=== PATIENT | female | born 1970 | race Caucasian/White ===

== ENCOUNTER 2017-01-24 23:58 | Emergency (ER) | payer BC ==
[~2017-01-24] VITALS: Ht 162.6 cm; Wt 92.8 kg
[~2017-01-24 23:58] MED LIST: CETI-273 PO; CIPR-212 PO; HYDR-4246 PO; LEVO150T11 PO; METF10002 PO; METR500T PO
--- OUTSIDE RECORDS SUMMARY | 2017-01-25 00:03 | XMS REPORT | Continuity of Care Document ---
Author Author [facility] Organization [facility] Address Unknown Phone Unavailable Support Name Relationship Address Phone ANDRES COTA MD Caregiver [address] [place] [address] Unavailable TAMIE ARROYO MD Caregiver [address] [place] [address] Unavailable CHANG MILLARD Next Of Kin Unknown [phone] Insurance Providers Guarantor Domenica Sampson Address [address] [place] [address] c Email [email or web address] [facility] Policy Number [id number] Subscriber's Name Domenica Sampson Relationship 18 Self Group Number [id number] Chief Complaint and Reason for Visit Chief Complaint Abdominal Pain Reason for Visit Diverticulitis Problems Active Problems Medical Problem Onset Date Status Acute appendicitis Unknown Acute Past Problems Medical Problem Onset Date Diverticulitis Unknown Medications Current Home Medications Medication Dose Units Route Directions Days Qty Instructions Start Date Cetirizine Hcl (Zyrtec) 10 Mg Tab.rapdis 1 Tab Oral As Needed RAPID DISSOLVE TABLET. 07/14/15 Ciprofloxacin Hcl (Cipro) 500 Mg Tablet 500 Mg Oral Every 12 Hours 20 Tablet 10/17/16 Hydrocodone/Acetaminophen (York 5-325 Tablet) 5-325 Tablet 1 Tab Oral Four Times Daily as needed for Pain 30 10/17/16 Levothyroxine Sodium 150 Mcg Tablet 150 Mcg Oral Before Breakfast Once daily before breakfast. 08/08/15 Metformin Hcl 1,000 Mg Tablet 1 Tab Oral Twice Daily With Meals Take one tablet, by mouth, twice daily with meals 10/17/16 Metronidazole (Flagyl) 500 Mg Tablet 500 Mg Oral Q8h @ 0100/0900/1700 30 Tablet Take 1 tablet, by mouth, every 8 hours. 10/17/16 Past Home Medications Medication Directions Ordered Status Levothyroxine Sodium 137 Mcg Tablet, 1 Tab Oral Before Breakfast 07/14/15 Discontinued Social History Social History Problem Response Recorded Date/Time Onset Date Status Chewing Tobacco Status No 10/17/2016 2:49am Not Applicable Not Applicable Hx Substance Use No 10/17/2016 2:49am Not Applicable Not Applicable Hx Alcohol Use No 10/17/2016 2:49am Not Applicable Not Applicable Tobacco Usage none 04/15/2014 4:52am Not Applicable Not Applicable Query Response Start Date Stop Date Smoking Status Never smoker Hospital Discharge Instructions No hospital discharge instructions. Plan of Care Discharge Date 10/17/16 4:05am Disposition 01 DISCHARGED HOME, SELF-CARE Condition at Discharge Improved Instructions/Education Provided Diverticulitis (ED) Prescriptions See Medication Section Referrals TAMIE ARROYO MD Address: [address] [place] [address] [place] [address] Additional Instructions/Education Cipro 500 mg, one tablet twice daily for 10 days Flagyl 500 mg one tablet 3 times daily for 10 days Aleve tanb-pow-rqsulon, 2 tablets twice daily for baseline pain control York 5 mg, one tablet every 6 hours as needed for pain Follow up with Dr. Arroyo next week if not improving Care Plan and Goals Physician Care Plan Problem: sigmoid diverticulitis Goal: Follow up with primary care provider Instructions: Take medications and follow care plan as discussed/written Cipro 500 mg, one tablet twice daily for 10 days Flagyl 500 mg one tablet 3 times daily for 10 days Aleve tahn-foq-ixbjrlu, 2 tablets twice daily for baseline pain control York 5 mg, one tablet every 6 hours as needed for pain Follow up with Dr. Arroyo next week if not improving Functional Status No functional status results. Allergies, Adverse Reactions, Alerts Allergen Type Severity Reaction Status Last Updated Penicillin Allergy Severe Active 10/17/16 Immunizations Query Response on File Recorded Date/Time Hx Influenza Vaccination No 08/08/15 12:52pm Hx Pneumococcal Vaccination No 08/08/15 12:52pm Hx Influenza Vaccination No 08/08/15 12:52pm Vital Signs Acute Vital Signs Vital Response Date/Time Temperature (Fahrenheit) 98.5 deg F (96.8 - 99.1) 10/17/2016 1:02am Temperature (Calculated Celsius) 36.21919 degrees C (36.0 - 37.3) 10/17/2016 1:02am Pulse Rate (adult) 80 bpm (60 - 100) 10/17/2016 4:05am Respiratory Rate 15 breaths/min (10 - 20) 10/17/2016 4:05am O2 Sat by Pulse Oximetry 96 % (90 - 100) 10/17/2016 4:05am Blood Pressure 141/72 mm Hg 10/17/2016 4:05am Height (Feet) 5 feet 10/17/2016 1:02am Height (Inches) 4.00 inches 10/17/2016 1:02am Weight (Kilograms) 94.700 kg 10/17/2016 1:02am Body Mass Index (BMI) 35.0 10/17/2016 1:02am Results Laboratory Results Test Name Result Units Flags Reference Collection Date/Time Result Date/ Time Comments White Blood Count 12.9 T/MM3 H 4.5-11.0 10/17/2016 1:42am 10/17/2016 1: 48am Red Blood Count 4.26 M/MM3 4.00-5.20 10/17/2016 1:42am 10/17/2016 1: 48am Hemoglobin 11.6 GM/DL L 12-16 10/17/2016 1:42am 10/17/2016 1:48am Hematocrit 36.2 % 36-46 10/17/2016 1:42am 10/17/2016 1:48am Mean Corpuscular Volume 85.0 UM3 80-100 10/17/2016 1:42am 10/17/2016 1: 48am Mean Corpuscular Hemoglobin 27.2 UUG 26-34 10/17/2016 1:42am 2016 1:48am Mean Corpuscular Hemoglobin Concent 32.0 GM/DL 31-37 10/17/2016 1:42am 10/17/2016 1:48am RDW Standard Deviation 42.3 FL 36.9-50.2 10/17/2016 1:42am 10/17/2016 1 :48am Platelet Count 367 T/MM3 130-400 10/17/2016 1:42am 10/17/2016 1:48am Mean Platelet Volume 9.6 UM3 9.4-12.4 10/17/2016 1:42am 10/17/2016 1: 48am Neutrophils (%) (Auto) 71.7 % H 33-66 10/17/2016 1:42am 10/17/2016 1: 48am Lymphocytes (%) (Auto) 22.2 % L 23-45 10/17/2016 1:4210/17/2016 1: 48am Monocytes (%) (Auto) 4.6 % 0-9.0 10/17/2016 1:4210/17/2016 1:48am Eosinophils (%) (Auto) 1.2 % 0-4 10/17/2016 1:4210/17/2016 1:48am Basophils (%) (Auto) 0.2 % 0-2 10/17/2016 1:4210/17/2016 1:48am Immature Granulocyte % (Auto) 0.1 % 0.0-0.5 10/17/2016 1:422016 1:48am Absolute Neutrophils (auto) 9.3 T/MM3 H 1.8-7.7 10/17/2016 1:422016 1:48am Absolute Lymphocytes (auto) 2.9 T/MM3 1-4.8 10/17/2016 1:422016 1:48am Absolute Monocytes (auto) 0.6 T/MM3 0-0.8 10/17/2016 1:4210/17/2016 1:48am Absolute Eosinophils (auto) 0.2 T/MM3 0-0.5 10/17/2016 1:422016 1:48am Absolute Basophils (auto) 0.0 T/MM3 0-0.2 10/17/2016 1:4210/17/2016 1:48am Absolute Immature Granulocyte (auto 0.01 T/MM3 0.00-0.03 10/17/2016 1: 4210/17/2016 1:48am Icterus Index < 2 0-7 10/17/2016 1:4210/17/2016 1:58am Chemistry Specimen Hemolysis < 15 0-25 10/17/2016 1:4210/17/2016 1 :58am 0-25: Specimen Exhibited No Hemolysis. Turbidity < 20 0-20 10/17/2016 1:42am 10/17/2016 1:58am Sodium Level 140 MEQ/L 134-144 10/17/2016 1:42am 10/17/2016 1:58am Potassium Level 4.0 MEQ/L 3.6-5 10/17/2016 1:4210/17/2016 1:58am Chloride Level 106 MEQ/L 98-107 10/17/2016 1:42am 10/17/2016 1:58am Carbon Dioxide Level 24 MEQ/L 22-30 10/17/2016 1:4210/17/2016 1: 58am Anion Gap 10 MEQ/L 5-15 10/17/2016 1:4210/17/2016 1:58am Blood Urea Nitrogen 9.0 MG/DL 7-17 10/17/2016 1:4210/17/2016 1:58am Creatinine 0.8 MG/DL 0.7-1.2 10/17/2016 1:4210/17/2016 1:58am BUN/Creatinine Ratio 11 RATIO 6-26 10/17/2016 1:4210/17/2016 1:58am Glomerular Filtration Rate Calc 78 10/17/2016 1:4210/17/2016 1: 58am Glucose Level 115 MG/DL H 65-110 10/17/2016 1:4210/17/2016 1:58am Calculated Osmolality 269 MOSM/KG 261-280 10/17/2016 1:4210/17/2016 1:58am Calcium Level 9.3 MG/DL 8.4-10.2 10/17/2016 1:4210/17/2016 1:58am Total Bilirubin 0.40 MG/DL 0.20-1.30 10/17/2016 1:4210/17/2016 1: 58am Alkaline Phosphatase 68 U/L 38-126 10/17/2016 1:4210/17/2016 1:58am Total Protein 7.1 G/DL 6.3-8.2 10/17/2016 1:4210/17/2016 1:58am Albumin 3.9 G/DL 3.5-5.0 10/17/2016 1:4210/17/2016 1:58am Globulin 3.2 G/DL 2.4-3.6 10/17/2016 1:4210/17/2016 1:58am Albumin/Globulin Ratio 1.2 RATIO 1.1-2.2 10/17/2016 1:4210/17/2016 1 :58am Aspartate Amino Transf (AST/SGOT) 16 U/L 14-36 10/17/2016 1:422016 1:58am Alanine Aminotransferase (ALT/SGPT) 29 U/L 9-52 10/17/2016 1:42am 10/17 1:58am Lipase 137 U/L 23-300 10/17/2016 1:42am 10/17/2016 1:58am Urine Collection Type CLEANCATCH-MIDSTREAM 10/17/2016 1:2016 1:39am Urine Color YELLOW YELLOW 10/17/2016 1:10/17/2016 1:39am Urine Turbidity CLEAR CLEAR 10/17/2016 1:10/17/2016 1:39am Urine Specific [place] >=1.030 H 1.015-1.025 10/17/2016 1:2016 1:39am Urine pH 5.5 5.0-8.0 10/17/2016 1:10/17/2016 1:39am Urine Leukocyte Esterase NEGATIVE NEGATIVE 10/17/2016 1:2016 1:39am Urine Nitrite NEGATIVE NEGATIVE 10/17/2016 1:10/17/2016 1:39am Urine Protein 1+ A NEGATIVE 10/17/2016 1:10/17/2016 1:39am Urine Glucose (UA) NEGATIVE NEGATIVE 10/17/2016 1:10/17/2016 1: 39am Urine Ketones NEGATIVE NEGATIVE 10/17/2016 1:10/17/2016 1:39am Urine Urobilinogen 0.2 EU/DL NORMAL 10/17/2016 1:10/17/2016 1: 39am Urine Bilirubin NEGATIVE NEGATIVE 10/17/2016 1:10/17/2016 1: 39am Urine Blood 2+ A NEGATIVE 10/17/2016 1:10/17/2016 1:39am Urine WBC NONE SEEN /HPF 0-5 10/17/2016 1:10/17/2016 1:44am Urine RBC 1-3 /HPF 0-3 10/17/2016 1:10/17/2016 1:44am Urine Bacteria NONE SEEN NEGATIVE 10/17/2016 1:10/17/2016 1: 44am Urine Calcium Oxalate Crystals MODERATE 10/17/2016 1:2016 1:44am Urine Culture Indicated CULT NOT INDICATED 10/17/2016 1:19am 2016 1:44am Procedures No known history of procedures. Encounters Encounter Location Arrival/Admit Date Discharge/Depart Date Attending Provider Departed Emergency Room [facility] 10/17/16 12:46am 10/17/16 4: 05am ANDRES COTA MD Recent Diagnosis
--- OUTSIDE RECORDS SUMMARY | 2017-01-25 00:03 | XMS REPORT ---
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 56686257 Problem Non morbid obesity, unspecified obesity type E66.9 Active 371869460 Problem Fatigue R53.83 Active 28224038 Problem Premenstrual tension syndrome N94.3 Active 53502772 Problem PCOS (polycystic ovarian syndrome) E28.2 Active 99437096 Problem Atrophic vaginitis N95.2 Active 58585188 ALLERGIES Unknown Allergies SOCIAL HISTORY No smoking Hx information available PLAN OF CARE VITAL SIGNS MEDICATIONS Medication Instructions Dosage Frequency Start Date End Date Duration Status Vitamin B-12 1000 mcg sublingually once a day 1 ANDREWS 24h Mar, 100 day(s) Active RESULTS No Results PROCEDURES No Known procedures IMMUNIZATIONS No Known Immunizations
[2017-01-25 00:06] VITALS: Ht 162.6 cm; Wt 92.8 kg
[2017-01-25] MEDS ORDERED: NORMAL SALINE 1,000 ML IV ONE (00:57)
[2017-01-25] MEDS ORDERED: KETOROLAC 30mg/ml INJECTION IV ONE (01:00)
[2017-01-25] MEDS ORDERED: ONDANSETRON 4mg/2ml INJECTION IV ONE (01:00)
--- NOTE | 2017-01-25 01:14 | ERPDOC ---
Departure Disposition Decision Date: January 25, 2017 Disposition Decision Time: 02:55 Disposition: 01 DISCHARGED HOME, SELF-CARE Impression Impression Impression: Primary Impression: Constipation Constipation type: unspecified constipation type Qualified Codes: K59.00 - Constipation, unspecified Severity: Severe Condition: Improved Seen By: Physician only Referrals: TAMIE ARROYO MD (Family) 1 Week Patient Instructions: Constipation (ED) Problems/Meds/Labs Reviewed?: Yes Medications reviewed and manag: Yes Additional Instructions: You have constipation. Take miralax up to six times per day for the next week. Ibuprofen or naproxen can help with the anticipated pain. Once you have decreased your stool burden, take the miralax daily to help maintain good bowel habits. Follow up with your doctor in the next week. Follow up care ordered?: Yes Mental Status: Alert, Oriented HPI - Abdominal Pain General Chief Complaint: Abdominal Pain Stated Complaint: ABD AND BACK PAIN Time Seen by Provider: 00:57 Source: patient History/Exam Limitations: no limitations HPI - Abdominal Pain Initial Comments 46yo woman presents to the ER tonight with right upper abdominal pain. Pain started three nights ago with RUQ cramping with crescendo/decrescendo stabbing pain. Pt has taken ibuprofen with some relief, but pain became severe tonight and now radiates into her back. Pt has had similar sx with prior bouts of diverticulitis. Claims that she has had diverticulitis in LUQ, LLQ, and RLQ previously. Has had cholecystectomy and appendectomy previously. Occurred At: home Onset: Rapid Duration: other Pain Scale: Now: 3/10, Worst: 10/10 Quality: aching, cramping, sharpness, stabbing Location: RUQ Radiation: flank, back Activities at Onset: none Modifying Factors: IMPROVES WITH: analgesics, movement, rest, walking, WORSE WITH: lying down, palpation, sitting Associated Symptoms: nausea/vomiting Hx of Similar Symptoms: Yes Allergies: Coded Allergies: Penicillins (Verified Allergy, Severe, 10/17/16) Past History Patient Medical History (1) Diverticulitis (2) Acute appendicitis (3) Sigmoid diverticulosis Past Medical History Metabolic: hypothyroidism GI: other Surgical History General: appendix, gallbladder, tonsils Reproductive/: tubal ligation Family History Family PMH: FOUND: other Vaccines Hx Influenza Vaccination: No Hx Pneumococcal Vaccination: No Social History Does patient use chewing tobac: No Second Hand Exposure: No Substance Use Type: does not use Alcohol Intake: none Sexuality: male partner Review of Systems GI Upper Abdomen: nausea, pain, DENIES: dysphagia, food intolerances, heartburn/ indigestion, hematemesis, vomiting All other Systems All Other Systems: Reviewed and Negative Physical Exam General General Nourishment: well nourished, well developed, appears stated age, adult , obese, acute distress General Body Habitus: well groomed Vitals and Pain First Documented Vital Signs Date Time Temp Pulse Resp B/P Pulse Ox O2 Delivery O2 Flow Rate FiO2 01/25/17 00:06 98.2 92 20 158/87 97 Room Air Weight: Kilograms: 92.800 Height (feet): 5 Height (inches): 4.00 Triage Pain Scale: RN VS reviewed by Provider: Yes Normal Exams: Head: Normocephalic w/o trauma Eyes: Pupils are PERRLA w/ EOMI, No scleral icterus, irritation ENMT: No facial trauma, nasal exudates, pharyngeal erythema Neck: Full range of motion, without adenopathy, JVD Lymphatic: No lymphadenopathy Musculoskeletal: No tenderness, or deformity noted Integumentary: No rashes, hives, or bruising noted Neurologic: Patient is alert, and oriented Psychiatric: Patient exhibits, appropriate attention Respiratory (brief) Respiratory: FOUND: clear all melton, equal bilaterally, symmetrical, NOT FOUND : rales, wheezes Cardiovascular (brief) Cardiac: FOUND: regular rate, regular rhythm, NOT FOUND: click, gallop, murmur , pedal edema, peripheral edema, rub Capillary Refill: <2 sec Pulses: all distal extremities, equal, strong Abdomen (brief) Abdominal Brief: FOUND: bowel normo active x4, soft, tender (TTP in RUQ; ), NOT FOUND: distended, hepatosplenomegaly, pulsatile mass Comments Rebound TTP in RUQ. Neg Rovsing's. Differential Diagnoses Considering: Biliary Colic, Cholecystitis, Constipation, Gastroenteritis, GERD , Hernia, Ileus, Pancreatitis, Pyelonephritis, Renal Colic, UTI, Other ( Ureterolithiasis) Progress Results/Orders Orders Procedure Category Date Status Time Iv Lock (Ed Only) EDM 01/25/17 Transmitted 00:57 Nothing By Mouth (Ed EDM 01/25/17 Transmitted Only) 00:57 Cbc W/Auto LAB 01/25/17 Complete Diff-Reflex Manual 00:57 Bmp - Basic Metabolic LAB 01/25/17 Complete Panel 00:57 Lipase LAB 01/25/17 Complete 00:57 Ct Abd/Pelvis W/O CT 01/25/17 Logged Contrast 00:57 Normal Saline (Normal PHA 01/25/17 Complete Saline Iv) 00:57 Ondansetron Inj PHA 01/25/17 Complete (Zofran) 01:00 Ketorolac (Toradol) PHA 01/25/17 Complete 01:00 UA, LAB 01/25/17 In Process Dip&Micro(Complete) & 02:37 Lab Results Laboratory Tests Test 01/25/17 01:18 01/25/17 02:37 White Blood Count 12.3T/MM3 Red Blood Count 4.30M/MM3 Hemoglobin 11.9GM/DL Hematocrit 35.7% Mean Corpuscular Volume 83.0UM3 Mean Corpuscular Hemoglobin 27.7UUG Mean Corpuscular Hemoglobin Concent 33.3GM/DL RDW Standard Deviation 40.9FL Platelet Count 323T/MM3 Mean Platelet Volume 9.3UM3 Immature Granulocyte % (Auto) 0.2% Neutrophils (%) (Auto) 75.5% Lymphocytes (%) (Auto) 15.9% Monocytes (%) (Auto) 6.3% Eosinophils (%) (Auto) 1.9% Basophils (%) (Auto) 0.2% Absolute Immature Granulocyte (auto 0.02T/MM3 Absolute Neutrophils (auto) 9.3T/MM3 Absolute Lymphocytes (auto) 2.0T/MM3 Absolute Monocytes (auto) 0.8T/MM3 Absolute Eosinophils (auto) 0.2T/MM3 Absolute Basophils (auto) 0.0T/MM3 Turbidity < 20 Sodium Level 143MEQ/L Potassium Level 4.5MEQ/L Chloride Level 104MEQ/L Carbon Dioxide Level 24MEQ/L Anion Gap 15MEQ/L Blood Urea Nitrogen 15.0MG/DL Creatinine 1.7MG/DL Glomerular Filtration Rate Calc 33 BUN/Creatinine Ratio 9RATIO Glucose Level 125MG/DL Calculated Osmolality 277MOSM/KG Calcium Level 9.3MG/DL Icterus Index < 2 Lipase 109U/L Chemistry Specimen Hemolysis < 15 Urine Collection Type Cleancatch-midstream Urine Color Yellow Urine Turbidity Clear Urine pH 5.5 Urine Specific [place] <=1.005 Urine Protein 1+ Urine Glucose (UA) Negative Urine Ketones Negative Urine Blood 1+ Urine Nitrite Negative Urine Bilirubin Negative Urine Urobilinogen 0.2EU/DL Urine Leukocyte Esterase Negative Urine RBC Pending Urine WBC Pending Urine Bacteria Pending Medications Current ED Medications Sodium Chloride (Normal Saline IV) 1,000 ml @ 0 mls/hr Q0M ONCE IV Last administered on 01/25/17 01:21; Start 01/25/17 at 00:57; Stop 01/25/17 at 00:59 ; Status DC Ondansetron HCl (Zofran) 4 mg O ONCE IV Last administered on 01/25/17 01:25; Start 01/25/17 at 01:00; Stop 01/25/17 at 01:01; Status DC Ketorolac Tromethamine (Toradol) 30 mg O ONCE IV Last administered on 01:21; Start 01/25/17 at 01:00; Stop 01/25/17 at 01:01; Status DC Progress Progress WBC c/w stress reaction; mild hematuria without evidence of UTI. CT did not show renal stones. Read as neg, but signficant stool burden throughout colon. Most likely dx is constipation. Follow up with your doctor in the next few days. CT CT : CT: Abd/Pelvis no contrast Interpretation: Normal, Reviewed Written Report EH BLAIR DO January 25, 2017 01:14
--- NOTE | 2017-01-25 01:18 | NUR ---
IVL IVL STARTED IN THE RIGHT AC WITH #20GA, FIRST ATTEMPT BLOOD OBTAINED FOR LAB PT IRA WELL SPOUSE AT BEDSIDE
--- NOTE | 2017-01-25 01:21 | NUR ---
TORADOL IV TORADOL GIVEN FOR PAIN
--- NOTE | 2017-01-25 01:21 | NUR ---
IV FLUID #1 IV 1000CC NS STARTED AT 999CC/HR IV SITE WITHOUT REDNESS OR SWELLING
[2017-01-25 01:23] LABS: BASOPHILS % (AUTO) 0.2 % (0-2); EOSINOPHILS # (AUTO) 0.2 T/MM3 (0-0.5); EOSINOPHILS % (AUTO) 1.9 % (0-4); HCT - HEMATOCRIT 35.7 % (36-46); HGB - HEMOGLOBIN 11.9 GM/DL (12-16); IMMATURE GRANULOCYTE # (AUTO) 0.02 T/MM3 (0.00-0.03); IMMATURE GRANULOCYTE % (AUTO) 0.2 % (0.0-0.5); LYMPHOCYTES % (AUTO) 15.9 % (23-45); MEAN CORPUSCULAR HGB 27.7 UUG (26-34); MEAN CORPUSCULAR HGB CONC(MCHC 33.3 GM/DL (31-37); MEAN PLATELET VOLUME 9.3 UM3 (9.4-12.4); MONOCYTES # (AUTO) 0.8 T/MM3 (0-0.8); MONOCYTES % (AUTO) 6.3 % (0-9.0); NEUTROPHILS #(AUTO)-ABSOLUTE 9.3 T/MM3 (1.8-7.7); NEUTROPHILS % (AUTO) 75.5 % (33-66); WBC - WHITE BLOOD COUNT 12.3 T/MM3 (4.5-11.0)
--- NOTE | 2017-01-25 01:25 | NUR ---
ZOFRAN IV ZOFRAN GIVEN FOR NAUSEA
[2017-01-25 01:32] LABS: ANION GAP 15 MEQ/L (5-15); BUN/CREATININE RATIO 9 RATIO (6-26); CALCIUM 9.3 MG/DL (8.4-10.2); CHLORIDE 104 MEQ/L (98-107); CO2 - CARBON DIOXIDE 24 MEQ/L (22-30); CREATININE 1.7 MG/DL (0.7-1.2); GLOMERULAR FILTRATION RATE 33; GLUCOSE 125 MG/DL (65-110); LIPASE 109 U/L (23-300); POTASSIUM 4.5 MEQ/L (3.6-5); SODIUM 143 MEQ/L (134-144)
--- NOTE | 2017-01-25 01:46 | NUR ---
CT PT TAKEN TO CT PER W/C
--- NOTE | 2017-01-25 01:56 | NUR ---
ROOM PT RETURNED TO ROOM [address] SPOUSE IN ROOM AT BEDSIDE
--- NOTE | 2017-01-25 02:00 | NUR ---
STATUS PT REPORTS HER NAUSEA IS GONE RATES HER PAIN 4-5/10
--- NOTE | 2017-01-25 02:33 | NUR ---
BATHROOM PT AMBULATORY TO BATHOOM TO VOID
--- NOTE | 2017-01-25 02:38 | NUR ---
IV FLUID IV NS INFUSED IV SITE WITHOUT REDNESS OR SWELLING
[2017-01-25 02:46] LABS: BLOOD, URINE 1+ (NEGATIVE); COLOR,URINE YELLOW (YELLOW); LEUKOCYTE ESTERASE ,URINE NEGATIVE (NEGATIVE); NITRITE,URINE NEGATIVE (NEGATIVE); UROBILINOGEN,URINE 0.2 EU/DL (NORMAL)
[2017-01-25 02:56] LABS: BACTERIA,URINE 1+ (NEGATIVE); RBC,URINE NONE SEEN /HPF (0-3); SQUAMOUS EPITHELIAL CELL,UR 0-5
--- NOTE | 2017-01-25 03:23 | NUR ---
IVL IVL DC'D WITH CATH INTACT DRSG APPLIED TO IV SITE PT RIA WELL
--- NOTE | 2017-01-25 03:26 | NUR ---
INSTRUCTIONS DISMISSAL INSTRUCTIONS GIVEN TO PT VERBALIZED UNDERSTANDING OF ALL
[2017-01-25 03:30] VITALS: BP 134/66; PULSE 73; RESP 14; TEMP 98.2; O2SAT 98
--- NOTE | 2017-01-25 03:30 | NUR ---
DISMISS PT DISMISSED AMBULATORY WITH SPOUSE
--- NOTE | 2017-01-25 10:31 | DI ---
Indication: ITS.REASON: RUQ with right flank pain PROCEDURE: CT ABD/PELVIS W/O CONTRAST: Encounter: Initial Comparison: October 17, 2016 Technique: Axial CT images were performed through the abdomen and pelvis without intravenous contrast. Coronal and sagittal two-dimensional reformats. Automated Exposure Control and Iterative Reconstruction dose reducing techniques were utilized. Findings: The lung bases are clear. The unenhanced contours of the liver are unremarkable. Gallbladder is surgically absent. The spleen, pancreas and adrenal glands are within normal limits. Kidneys are normal. No renal or ureteral stones. Tubal ligation clips. Bladder is normal. No free fluid or evidence of a bowel obstruction. Appendix is surgically absent. Impression: No acute disease process seen. There is a preliminary report by [employer]. .
== END 2017-01-25 03:30 | disposition home or self-care (01) ==
LOC: ED 23:58
DX: K59.00 Constipation, unspecified (principal); R31.9 Hematuria, unspecified
CPT/HCPCS: 74176; 80048; 81001; 83690; 85025; 96361; 96374; 96375; 99284; J1885; J2405; J7030